=== PATIENT | female | born 1975 | race Asian ===

== ENCOUNTER 2025-03-29 06:21 | Day surgery (SDC) | payer OTHER, SELFPAY ==
[2025-03-22 13:58] VITALS: BMI 23.1
[2025-03-29] VITALS (10 sets, daily range): BP systolic 81–110; BP diastolic 44–79; BMI 22.5
[2025-03-29] MEDS: NORMOSOL-R/PLASMALYTE-A 1000 IV (13:47)
== END 2025-03-29 16:18 | disposition home or self-care (01) ==
LOC: SDS 06:21
PROVIDERS: ATTENDING PHYSICIAN Surgery; FAMILY PHYSICIAN Nurse Practitioner Adult Health
DX: K60.30 Anal fistula, unspecified (principal)
CPT/HCPCS: 46270; 93005